=== PATIENT | male | born 1970 | race Caucasian/White ===

== ENCOUNTER 2017-07-04 15:38 | Emergency (ER) | payer OTHER ==
[2017-07-04] MEDS ORDERED: PROMETHAZINE HCL 25 MG/ML VIAL IVP ONE (16:04)
[2017-07-04] MEDS ORDERED: 0.9 % SODIUM CHLORIDE 1,000 ML BAG IV ONE (16:04)
--- NOTE | 2017-07-04 16:21 | Emergency Department Record ---
History of Present Illness - General Chief Complaint: Headache Migraine Stated Complaint: MIGRAINE Time Seen by Provider: 07/04/17 15:58 Source: Patient Mode of Arrival: Ambulatory Limitations: No limitations - History of Present Illness Initial Comments: pt has a headache that is worse then usual. he has a hx of headaches which he has dxd as migraines though he has never seen a doctor for it. he has photophobia and nausea. usually tylenol makes his headaches better but it did not this time. it started yesterday, got a little better then got worse again today. it was a 9.5 but now its an 8.5. Complaint: Headache Onset/Timin -: Hour(s) Onset Description: Awoke with symptoms Location: Temporal Severity: Moderate Severity scale (1-10): 10 Quality: Throbbing, Similar to previous headaches Consistency: Constant Improves With: Nothing Worsens With: Light Associated Symptoms: Photophobia, Sensitivity to sound Treatments Prior to Arrival: Acetaminophen Treatment Prior to Arrival Comment:: 1000 this AM - Related Data Allergies Allergy/AdvReac Type Severity Reaction Status Date / Time No Known Drug Allergies Allergy Verified 07/04/17 15:40 Travel Screening - Travel/Exposure Within Last 30 Days Have you traveled within the last 30 days?: No - Travel/Exposure Within Last Year Have you traveled outside the [place] in the last year?: No - Additonal Travel Details Have you been exposed to anyone with a communicable illness?: No - Travel Symptoms Symptom Screening: None Review of Systems Reviewed: No additional complaints except as noted below Constitutional: Reports: As per HPI. Denies: Chills, Fever, Malaise, Night sweats, Weakness, Weight change Eyes: Reports: As per HPI. Denies: Eye discharge, Eye pain, Photophobia, Vision change ENT: Reports: As per HPI. Denies: Congestion, Dental pain, Ear pain, Epistaxis , Hearing loss, Throat pain Respiratory: Reports: As per HPI. Denies: Cough, Dyspnea, Hemoptysis, Stridor, Wheezes Cardiovascular: Reports: As per HPI. Denies: Arrhythmia, Chest pain, Dyspnea on exertion, Edema, Murmurs, Orthopnea, Palpitations, Paroxysmal nocturnal dyspnea, Rheumatic Fever, Syncope Endocrine: Reports: As per HPI. Denies: Fatigue, Heat or cold intolerance, Polydipsia, Polyuria Gastrointestinal: Reports: As per HPI. Denies: Abdominal pain, Constipation, Diarrhea, Hematemesis, Hematochezia, Melena, Nausea, Vomiting Genitourinary: Reports: As per HPI. Denies: Dysuria, Frequency, Hematuria, Incontinence, Retention, Testicular pain, Testicular mass, Urgency Musculoskeletal: Reports: As per HPI. Denies: Arthralgia, Back pain, Gout, Joint swelling, Myalgia, Neck pain Skin: Reports: As per HPI. Denies: Bruising, Change in color, Change in hair/ nails, Lesions, Pruritus, Rash Neurological: Reports: As per HPI. Denies: Abnormal gait, Confusion, Headache, Numbness, Paresthesias, Seizure, Tingling, Tremors, Vertigo, Weakness Psychiatric: Reports: As per HPI. Denies: Anxiety, Auditory hallucinations, Depression, Homicidal thoughts, Suicidal thoughts, Visual hallucinations Hematological/Lymphatic: Reports: As per HPI. Denies: Anemia, Blood Clots, Easy bleeding, Easy bruising, Swollen glands Past Medical History - SOCIAL HISTORY Smoking Status: Never smoker Alcohol Use: None Drug Use: None - RESPIRATORY Hx Respiratory Disorders: No - CARDIOVASCULAR Hx Cardio Disorders: No - NEURO Hx Neuro Disorders: Yes Hx Headaches: Yes - GI Hx GI Disorders: No - Hx Genitourinary Disorders: No - ENDOCRINE Hx Endocrine Disorders: Yes Hx Diabetes: No Hx Thyroid Disease: Yes - MUSCULOSKELETAL Hx Musculoskeletal Disorders: No - PSYCH Hx Psych Problems: No - HEMATOLOGY/ONCOLOGY Hx Hematology/Oncology Disorders: No Family Medical History Any Significant Family History?: Yes Hx Cancer: Mother Hx Diabetes: Father Hx Heart Disease: Father Hx HTN: Father Physical Exam - General General Appearance: Alert, Oriented x3, Cooperative, Mild distress - Head Head exam: Normal inspection - Eye Eye exam: Normal appearance, PERRL, EOMI Pupils: Normal accommodation - ENT ENT exam: Normal exam, Mucous membranes moist, Normal external ear exam, Normal orophraynx Ear exam: Normal external inspection. negative: External canal tenderness Nasal Exam: Normal inspection. negative: Discharge, Sinus tenderness Mouth exam: Normal external inspection, Tongue normal Teeth exam: Normal inspection. negative: Dental caries Throat exam: Normal inspection. negative: Tonsillar erythema, Tonsillar exudate - Neck Neck exam: Normal inspection, Full ROM. negative: Tenderness - Respiratory Respiratory exam: Normal lung sounds bilaterally. negative: Respiratory distress - Cardiovascular Cardiovascular Exam: Regular rate, Normal rhythm, Normal heart sounds - GI/Abdominal GI/Abdominal exam: Soft, Normal bowel sounds. negative: Tenderness - Rectal Rectal exam: Deferred - exam: Deferred - Extremities Extremities exam: Normal inspection, Full ROM, Normal capillary refill. negative: Tenderness - Back Back exam: Reports: Normal inspection, Full ROM. Denies: Muscle spasm, Rash noted, Tenderness - Neurological Neurological exam: Alert, CN II-XII intact, Normal gait, Oriented X3 - Psychiatric Psychiatric exam: Normal affect, Normal mood - Skin Skin exam: Dry, Intact, Normal color, Warm Course Vital Signs 07/04/17 15:48 Temperature 97.6 F Pulse Rate 75 Respiratory 18 Rate Blood Pressure 134/78 Pulse Ox 98 - Reevaluation(s) Reevaluation #1: 07/04/17 18:11 lp was d/w pt who consented Reevaluation #2: 07/04/17 18:14 pts jade is down to a 2/10 with one dose of pain med. very unlikely to be infection or sah. pt is to f/u with neurologist and return sooner if worse. this is exactly like pts previous has except it didnt get better with tylenol. Reevaluation #3: 07/04/17 18:54 pts jade is a 1/10 and he is ready to go home Procedures - Lumbar Puncture Consent Obtained: Written consent Time Out Performed: Yes Indication for Procedure: Headache Patient Position: Sitting upright/leaning forward Local Anesthetic Used: Lidocaine 1% Spinal Needle Gauge: 22G Spinal Needle Length: 3in Interspace Used: L3-L4 Complications: Unable to obtain CSF Patient Tolerated Procedure: Good Additional Comments: pt was calcified and was unable to gain entrance at l3-l4 and l4-l5, multiple attempts.d/w pt Medical Decision Making - Lab Data Result diagrams: 07/04/17 16:30 07/04/17 16:30 Disposition Disposition: Discharge Clinical Impression: Headache Qualifiers: Headache type: unspecified Headache chronicity pattern: acute headache Intractability: not intractable Qualified Code(s): R51 - Headache Disposition: Home, Self-Care Condition: (1) Good Instructions: Acute Headache (ED) Additional Instructions: follow up with neurologist without fail. have mri of brain. return sooner if worse. rest. Forms: Patient Portal Access Quality - Quality Measures Quality Measures: N/A - Blood Pressure Screening Blood Pressure Classification: Pre-Hypertensive BP Reading Systolic Measurement: 134 Diastolic Measurement: 78 Screening for High Blood Pressure: < Normal BP, F/U Not Required > [[id number]] Normal BP Follow-up Interventions: No follow-up required
[2017-07-04 16:38] LABS: BASO % 0.2 % (0-6); EOS % 2.3 % (0-6); HEMATOCRIT 48.3 % (42.0-52.0); HEMOGLOBIN 16.4 gm/dl (14.0-18.0); LYMPH % 16.2 % (16-45); MEAN CELL VOLUME 82.8 fl (81-97); MEAN CORPUSCULAR HEMOGLOBIN 28.1 pg (27-33); MEAN PLATELET VOLUME 9.2 fl (7.4-10.4); MONO % 6.3 % (0-9); PLATELET COUNT 265 K/uL (130-400); RED BLOOD COUNT 5.83 M/uL (4.40-5.70); RED CELL DISTRIBUTION WIDTH 13.3 % (11.5-14.5); WHITE BLOOD COUNT W/O DIFF 8.2 K/uL (4.2-12.2)
[2017-07-04 16:48] LABS: ANION GAP 10.3 (7-16); BLOOD UREA NITROGEN 14 mg/dL (9-20); CARBON DIOXIDE 26.7 mmol/L (22-30); CREATININE 0.8 mg/dL (0.66-1.25); EST GLOMERULAR FILTRATION RATE > 60 ml/min; GLUCOSE,RANDOM 113 mg/dL (70-110)
[2017-07-04 17:11] LABS: ERYTHROCYTE SEDIMENTATION RATE 1 mm/hr (0-15)
[2017-07-04] MEDS ORDERED: HYDROMORPHONE HCL 1MG/ML **SYRINGE IVP ONE (17:13)
[2017-07-04] MEDS ORDERED: HYDROCODONE/APAP 5/325MG TABLET PO ONE (18:53)
--- NOTE | 2017-07-06 13:26 | CT SCAN REPORT ---
EXAM: CT SCAN OF THE BRAIN WITHOUT CONTRAST HISTORY: HEADACHE WITH POUNDING SENSATION IN THE MORMONISM REGIONS. NAUSEA AND LIGHT SENSITIVITY. TECHNIQUE: Standard CT imaging of the brain was performed without contrast. Comparison: None. Encounter: Not applicable. FINDINGS: The ventricles and subarachnoid spaces are normal. There is no mass , mass effect, midline shift, intracranial hemorrhage, visible acute infarct, or abnormal extraaxial fluid. The skull is intact. The orbits, sinuses, and mastoids are normal. IMPRESSION: NEGATIVE NONCONTRAST CT SCAN OF THE BRAIN. JOB NUMBER: [id number] MTDD
== END 2017-07-04 19:20 | disposition home or self-care (01) ==
LOC: ER 15:38
DX: R51 Headache (principal); R11.0 Nausea; H53.149 Visual discomfort, unspecified
CPT/HCPCS: 62270 ×2; 99284 ×2; 96374; 96375; 85025; 85651; 80048; 70450; J1170; J2550; J7030